=== PATIENT | female | born 1995 | race Caucasian/White ===

== ENCOUNTER 2018-01-29 10:23 | Emergency (ER) | payer OTHER ==
[2018-01-29 10:52] VITALS: BP 103/69
--- NOTE | 2018-01-29 11:25 | UC ---
Hand/Wrist HPI - HPI Summary HPI Summary: This patient is a 22 year old female presenting to [facility] accompanied by family and friends with a chief complaint of left wrist pain since being dropped. Patient states she fell approx. 4 feet and landed on her left arm. The pain is located in her left hand and wrist. The pain is rated 5/10 in severity. Symptoms aggravated by movement and palpation. Patient denies fever, chills, any other medical complaints at this time. 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 - History Of Current Complaint Chief Complaint: UCUpperExtremity Stated Complaint: WRIST INJURY Time Seen by Provider: 01/29/18 11:07 Hx Obtained From: Patient Hx Last Menstrual Period: 3 month bc Onset/Duration: Sudden Onset, Lasting Hours, Still Present Severity Currently: Moderate Pain Intensity: 5 Pain Scale Used: 0-10 Numeric Aggravating Factor(s): Movement Alleviating Factor(s): Nothing Associated Signs And Symptoms: Positive: Negative - fever, chills PMH/Surg Hx/FS Hx/Imm Hx Previously Healthy: Yes Other Endocrine History: Negative: Diabetes Other Cardiovascular History: Negative: Hypertension Other Respiratory History: negative Other GI/ History: negative Other Neurological History: negative Other Psychological History: negative Other Cancer History: negative - Surgical History Surgical History: None - Family History Known Family History: Negative: Hypertension - Social History Occupation: Student Alcohol Use: Occasionally Substance Use Type: None Smoking Status (MU): Never Smoked Tobacco Review of Systems Constitutional: Negative - Fever, Chills Skin: Negative Eyes: Negative ENT: Negative Respiratory: Negative Cardiovascular: Negative Gastrointestinal: Negative Motor: Negative Neurovascular: Negative Musculoskeletal: Arthralgia, Decreased ROM - Painful, Other: - pain to left wrist Neurological: Negative Psychological: Negative Is Patient Immunocompromised?: No All Other Systems Reviewed And Are Negative: Yes Physical Exam - Summary Physical Exam Summary: Appearance: Well-Appearing, No Pain Distress, Well-Nourished Eyes: conjunctiva clear, no discharge ENT: Hearing grossly normal, no muffled/hoarse voice. Neck: Normal, Supple Respiratory/Lung Sounds: Lungs clear, Normal breath sounds, Cardiovascular: RRR, No murmur Abdomen: Nontender, Soft, no guarding, not distended Bowel Sounds: Present Musculoskeletal: left wrist: No significant swelling or bruising , Significant tenderness at anatomical snuff box and dorsal wrist, Limited ROM of left wrist, painful- painful dorsiflexion. Rubi test is negative Sensation intact Neurological: Alert, muscle tone normal Psychiatric:Normal, age appropriate behavior Skin: Normal, Warm, Dry, Normal color Triage Information Reviewed: Yes Vital Signs: Initial Vital Signs Temp 98 F 01/29/18 10:49 Pulse 87 01/29/18 10:49 Resp 18 01/29/18 10:49 BP 103/69 01/29/18 10:49 Pulse Ox 100 01/29/18 10:49 Diagnostics - Radiology Wrist XR Xray Interpretation: No Acute Changes - Wrist XR reveals, per radiologist, IMPRESSION: Normal radiograph of the left wrist. If the patient's symptoms persist, follow-up imaging is recommended. physician has reviewed this radiology report. Radiology Interpretation Completed By: Radiologist Hand/Wrist Course/Dx - Course Course Of Treatment: This patient is a 22 year old female presenting to [facility] accompanied by family and friends with a chief complaint of left wrist pain since being dropped. Patient states she fell approx. 4 feet and landed on her left hand. Wrist XR reveals, per radiologist, IMPRESSION: Normal radiograph of the left wrist. If the patient's symptoms persist, follow-up imaging is recommended. physician has reviewed this radiology report. Patients wrist was wrapped and immobilized in a sugar tong thumb spica splint . Patient was diagnosed with possible scaphoid fracture and wrist sprain. She will need repeat xrays in 2 weeks or mri. Patient will be discharged with a physical education release note and referred to a hand surgeon. The patient is agreeable with this plan. - Differential Dx/Diagnosis Provider Diagnoses: Left wrist sprain. Possible scaphoid fracture Discharge - Sign-Out/Discharge Documenting (check all that apply): Patient Departure All imaging exams completed and their final reports reviewed: Yes - Discharge Plan Condition: Stable Disposition: HOME Patient Education Materials: Scaphoid Fracture (ED), Wrist Sprain (ED) Forms: *Physical Education Release Referrals: Jonnathan Barros MD [Medical Doctor] - 2 Days No Primary Care Phys,[facility] [Primary Care Provider] - Additional Instructions: Start taking ibuprofen for pain. and use sling for comfort Follow up with orthopedics in 2 days Return to Urgent care / ER if symptoms get worse. - Billing Disposition and Condition Condition: STABLE Disposition: Home - Attestation Statements Document Initiated by Scribe: Yes Documenting Scribe: Mark Schroeder Provider For Whom Scribe is Documenting (Include Credential): Ladonna Neumann MD Scribe Attestation: I, Mark Schroeder, scribed for Ladonna Neumann MD on 01/29/18 at 1505. Scribe Documentation Reviewed: Yes Provider Attestation: The documentation as recorded by the Mark aggarwal accurately reflects the service I personally performed and the decisions made by me, Ladonna Neumann MD
--- NOTE | 2018-01-29 11:40 | RAD ---
INDICATION: Left wrist pain after a fall COMPARISON: None. TECHNIQUE: 3 views left wrist. REPORT: The visualized bones are properly aligned and well corticated. The joint spaces are normal.There is no fracture, dislocation or other focal osseous abnormality. IMPRESSION: Normal radiograph of the left wrist. If the patient's symptoms persist, follow-up imaging is recommended.
== END 2018-01-29 12:00 | disposition home or self-care (01) ==
LOC: UCEAST 10:23
DX: S63.502A Unspecified sprain of left wrist, initial encounter (principal); W04.XXXA Fall while being carried or supported by other persons, initial encounter; Y93.9 Activity, unspecified; Y92.9 Unspecified place or not applicable
CPT/HCPCS: 99212; G0463